=== PATIENT | male | born 1955 | race Caucasian/White ===

== ENCOUNTER 2021-02-20 18:36 | Emergency (ER) | payer MEDICAID ==
--- NOTE | 2021-02-20 19:16 | EDM.PDOC ---
ED HPI GENERAL MEDICAL PROBLEM - General Chief Complaint: Abdominal Pain Stated Complaint: PERFORATED BOWEL VIA [facility] AMB Time Seen by Provider: 02/20/21 19:09 Source of Information: Reports: Patient, EMS History Limitations: Reports: No Limitations - History of Present Illness INITIAL COMMENTS - FREE TEXT/NARRATIVE: Mp is a 65 year old male presents to ER via EMS due to abdominal pain which started on Saturday and described as severe. Patient had an appointment at [facility] today for a PET scan for a work-up for a different condition. Mp was called today by the ordering provider or radiology regarding concerning findings on PET scan for possible perforated ulcer. Mp has had decreased appetite with nausea and worsening abdominal pain across upper abdomen starting on Saturday which has progressively worsened over the last 2-3 days. Mp was told to go to the nearest ER, he called sister and a friend whom declined a ride but called the ambulance to transport him to the ER this evening. Mp's last meal was 11amlunch but had a few cookies with evening medications. Mp lives in the [facility]. Patient reporting not quite understanding why he needed to present to the ER this evening by ambulance. Patient is a very poor historian and unable to give details or offer additional information. Right Upper Abdomen Pain Score (Numeric/FACES): 2 - Related Data Allergies Allergy/AdvReac Type Severity Reaction Status Date / Time No Known Allergies Allergy Verified 02/20/21 18:49 Home Meds: Home Meds Diclofenac Potassium [Cataflam] 50 mg PO TID 02/20/21 [History] Tiotropium [Spiriva Handihaler] 1 puff IH DAILY 02/20/21 [History] Past Medical History Respiratory History: Reports: COPD Genitourinary History: Reports: BPH Musculoskeletal History: Reports: Back Pain, Chronic, Fracture Oncologic (Cancer) History: Reports: Lung Other Oncologic History: lung mass noted recently 01/2021 - Infectious Disease History Infectious Disease History: Reports: Chicken Pox, Measles, Mumps - Past Surgical History Musculoskeletal Surgical History: Reports: Hip Replacement Social & Family History - Tobacco Use Tobacco Use Status *Q: Current Every Day Tobacco User Years of Tobacco use: 50 Packs/Tins Daily: 0.1 - Caffeine Use Caffeine Use: Reports: Coffee - Recreational Drug Use Recreational Drug Use: Yes Drug Use in Last 12 Months: Yes Recreational Drug Type: Reports: Marijuana/Hashish Recreational Drug Use Frequency: Weekly ED ROS GENERAL - Review of Systems Review Of Systems: Comprehensive ROS is negative, except as noted in HPI. (limited historian.) ED EXAM, GI/ABD - Physical Exam Exam: See Below Exam Limited By: No Limitations General Appearance: Alert, WD/WN, Moderate Distress (due severe pain across upper abdomen) Eyes: Bilateral: Normal Appearance Ears: Hearing Grossly Normal Nose: Normal Inspection, Normal Mucosa Throat/Mouth: Normal Inspection, Normal Lips, Normal Voice, No Airway Compromise Neck: Normal Inspection, Supple Respiratory/Chest: No Respiratory Distress, Decreased Breath Sounds (upper lobe (known lung mass)) Cardiovascular: Normal Peripheral Pulses, Regular Rate, Rhythm (severely high blood pressure) GI/Abdominal Exam: Distended, Guarding, Tender (across upper abdomen), Abnormal Bowel Sounds (hypoactive) Extremities: Normal Inspection, Normal Range of Motion Neurological: Alert, Oriented, CN II-XII Intact, Normal Cognition, Normal Gait Psychiatric: Flat Affect Skin Exam: Warm, Dry, Intact Course - Vital Signs Last Recorded V/S: Last Vital Signs Temp 36.5 C 02/20/21 18:45 Pulse 89 02/20/21 20:30 Resp 16 02/20/21 19:59 BP 132/88 02/20/21 20:30 Pulse Ox 91 L 02/20/21 20:30 - Orders/Labs/Meds Orders: Active Orders 24 hr Category Date Time Status Lactated Ringers [Ringers, Lactated] 1,000 ml Med 02/20/21 19:29 Active IV BOLUS Medication Orders Lactated Ringer's (Ringers, Lactated) 1,000 mls @ 250 mls/hr IV BOLUS ONE Stop: 02/20/21 23:28 Last Admin: 02/20/21 19:50 Dose: 250 mls/hr Documented by: STEFFI Labs: Laboratory Tests 02/20/21 02/20/21 Range/Units 19:20 19:20 WBC 9.9 (4.5-11.0) K/uL RBC 4.77 (4.30-5.90) M/uL Hgb 13.9 (12.0-15.0) g/dL Hct 42.6 (40.0-54.0) % MCV 89 (80-98) fL MCH 29 (27-31) pg MCHC 33 (32-36) % Plt Count 223 (150-400) K/uL Neut % (Auto) 67.7 H (36-66) % Lymph % (Auto) 18.3 L (24-44) % Dawson % (Auto) 12.3 H (2-6) % Eos % (Auto) 1.4 L (2-4) % Baso % (Auto) 0.3 (0-1) % Sodium 138 L (140-148) mmol/L Potassium 4.1 (3.6-5.2) mmol/L Chloride 102 (100-108) mmol/L Carbon Dioxide 26 (21-32) mmol/L Anion Gap 14.1 H (5.0-14.0) mmol/L BUN 16 (7-18) mg/dL Creatinine 0.9 (0.8-1.3) mg/dL Est Cr Clr Drug Dosing 82.92 mL/min Estimated GFR (MDRD) > 60 (>60) Glucose 98 (74-106) mg/dL Calcium 8.7 (8.5-10.1) mg/dL Total Bilirubin 0.3 (0.2-1.0) mg/dL AST 13 L (15-37) U/L ALT 24 (12-78) U/L Alkaline Phosphatase 71 (46-116) U/L Total Protein 7.0 (6.4-8.2) g/dL Albumin 2.7 L (3.4-5.0) g/dL Globulin 4.3 H (2.3-3.5) g/dL Albumin/Globulin Ratio 0.6 L (1.2-2.2) Meds: Medications Generic Name Dose Route Start Last Admin Trade Name Freq PRN Reason Stop Dose Admin Lactated Ringer's 1,000 mls @ 250 mls/hr 02/20/21 19:29 02/20/21 19:50 Ringers, Lactated IV 02/20/21 23:28 250 mls/hr BOLUS ONE Administration Discontinued Medications Generic Name Dose Route Start Last Admin Trade Name Freq PRN Reason Stop Dose Admin Fentanyl 50 mcg 02/20/21 19:22 02/20/21 19:52 Fentanyl 100 Mcg/2 Ml Sdv IVPUSH 02/20/21 19:23 50 mcg ONETIME ONE Administration Sodium Chloride 1,000 mls @ 500 mls/hr 02/20/21 19:30 Normal Saline IV ASDIRECTED [facility] Metoclopramide HCl 5 mg 02/20/21 19:22 02/20/21 19:51 Metoclopramide 10 Mg/2 Ml Sdv IV 02/20/21 19:23 5 mg ONETIME ONE Administration Pantoprazole Sodium 40 mg 02/20/21 19:23 02/20/21 19:52 Pantoprazole 40 Mg Vial IVPUSH 02/20/21 19:24 40 mg ONETIME ONE Administration - Re-Assessments/Exams Free Text/Narrative Re-Assessment/Exam: 02/20/21 19:10 Assessment completed with patient unaware of severity of illness noted on PET scan earlier today at [facility]. 02/20/21 19:20 Called [facility] about radiology result regarding PET scan noted acute inflammatory changes involving stomach with signs of free air. History and presentation consistent with possible perforated ulcer, IV access obtained. Baseline blood tests to ensure no acute drop in hgb or electrolyte abnormality which would need to be treated before transferred. No IV antibiotics given due to possible desire for blood cultures at receiving facility. None of the tests or records obtained at [facility] will be readily available to receiving facility. Dr Prajapati declined need for additional testing or advanced imaging at this time with recommendation to transfer via EMS as soon as possible. Repeat imaging was not performed here due to [facility] already has imaging competed earlier today. 02/20/21 20:05 CBC and CMP results noted without any acute findings which warrant emergent intervention before time of transfer. Departure - Departure Time of Disposition: 20:51 Disposition: DC/Tfer to [facility] 02 Clinical Impression: Abdominal pain, Perforated ulcer of intestine - Discharge Information Referrals: PCP,None [Primary Care Provider] - Forms: ED Department Discharge, Interfacility Transfer JO ANN Sepsis Event Note (ED) - Evaluation Sepsis Screening Result: No Definite Risk - Focused Exam Vital Signs: Vital Signs Temp Pulse Resp BP Pulse Ox 02/20/21 20:30 89 132/88 91 L 02/20/21 19:59 90 16 167/98 H 94 L 02/20/21 18:45 36.5 C 92 18 189/102 H 93 L - My Orders Last 24 Hours: My Active Orders 02/20/21 19:29 Lactated Ringers [Ringers, Lactated] 1,000 ml IV BOLUS - Assessment/Plan Last 24 Hours: My Active Orders 02/20/21 19:29 Lactated Ringers [Ringers, Lactated] 1,000 ml IV BOLUS
[2021-02-20] MEDS ORDERED: Metoclopramide 10 MG/2 ML SDV IV ONE (19:22)
[2021-02-20] MEDS ORDERED: fentaNYL 100 MCG/2 ML SDV IVPUSH ONE (19:22)
[2021-02-20] MEDS ORDERED: Pantoprazole 40 MG Vial IVPUSH ONE (19:23)
[2021-02-20] MEDS ORDERED: Lactated Ringers 1,000 ML IV ONE (19:29)
[2021-02-20] MEDS ORDERED: Sodium Chloride 0.9% 1,000 ML IV SCH (19:30)
== END 2021-02-20 21:07 ==
LOC: JP.ED 18:36
DX: K63.1 Perforation of intestine (nontraumatic) (principal); J44.9 Chronic obstructive pulmonary disease, unspecified; Z72.0 Tobacco use
CPT/HCPCS: 36415; 80053; 85025; 96374; 96375; 99285; C9113; J2765; J3010; J7120

== ENCOUNTER 2021-03-01 08:06 | Emergency (ER) | payer MEDICAID ==
--- NOTE | 2021-03-01 08:46 | EDM.PDOC ---
ED HPI GENERAL MEDICAL PROBLEM - General Chief Complaint: Upper Extremity Injury/Pain Stated Complaint: MEDICAL VIA [facility] Time Seen by Provider: 03/01/21 08:30 Source of Information: Reports: Patient, EMS History Limitations: Reports: No Limitations - History of Present Illness INITIAL COMMENTS - FREE TEXT/NARRATIVE: 65-year-old male with right posterior chest wall and back pain that was very intense this morning. Prior to his scheduled oxycodone, he developed a very sharp and intense pain and became very diaphoretic which scared him. He took one of his oxycodone and called the ambulance. It hurt to breathe but he was not short of breath, EMS picked him up and did an EKG which looked benign. They gave some IV Toradol and transported him to the ER and his pain is now almost gone. No fevers or chills, no hemoptysis. Onset: Unknown/Unsure (Woke with pain this morning at around 730 or 8:00) Duration: Hour(s): (Several hours) Quality: Reports: Sharp, Stabbing Worsens with: Reports: Breathing Associated Symptoms: Reports: Diaphoresis Right Shoulder Pain Score (Numeric/FACES): 4 - Related Data Allergies Allergy/AdvReac Type Severity Reaction Status Date / Time No Known Allergies Allergy Verified 03/01/21 08:19 Home Meds: Home Meds Nicotine [Habitrol] 21 mg TD DAILY 03/01/21 [History] Pantoprazole [ProTONIX] 40 mg PO DAILY 03/01/21 [History] Tiotropium [Spiriva Handihaler] 18 mcg IH DAILY 03/01/21 [History] oxyCODONE 5 mg PO Q4HR PRN 03/01/21 [History] Past Medical History HEENT History: Reports: None Cardiovascular History: Reports: None Respiratory History: Reports: COPD Other Respiratory History: lung lesion Gastrointestinal History: Reports: GERD, PUD Genitourinary History: Reports: BPH Musculoskeletal History: Reports: Back Pain, Chronic, Fracture Psychiatric History: Reports: None Endocrine/Metabolic History: Reports: None Hematologic History: Reports: None Immunologic History: Reports: None Oncologic (Cancer) History: Reports: Lung Other Oncologic History: lung mass noted recently 01/2021 - Infectious Disease History Infectious Disease History: Reports: Chicken Pox, Measles, Mumps - Past Surgical History HEENT Surgical History: Reports: None Respiratory Surgical History: Reports: Lung Biopsies GI Surgical History: Reports: Other (See Below) Other GI Surgeries/Procedures: Abdominal exploration repair of perforated gastric ulcer Musculoskeletal Surgical History: Reports: Hip Replacement Social & Family History - Tobacco Use Tobacco Use Status *Q: Former Tobacco User Used Tobacco, but Quit: Yes Month/Year Tobacco Last Used: 02/20/2021 - Caffeine Use Caffeine Use: Reports: Coffee Review of Systems - Review of Systems Review Of Systems: See Below Constitutional: Denies: Fever Eyes: Reports: No Symptoms Ears: Reports: No Symptoms Mouth/Throat: Reports: No Symptoms Respiratory: Reports: Pleuritic Chest Pain. Denies: Shortness of Breath, Hemoptysis Cardiovascular: Denies: Chest Pain GI/Abdominal: Denies: Abdominal Pain, Nausea, Vomiting Musculoskeletal: Reports: Shoulder Pain Skin: Reports: Diaphoresis Neurological: Reports: No Symptoms Psychiatric: Reports: No Symptoms ED EXAM, GENERAL - Physical Exam Exam: See Below Exam Limited By: No Limitations General Appearance: Alert, No Apparent Distress Eye Exam: Bilateral Eye: Normal Inspection Head: Atraumatic Neck: Non-Tender Respiratory/Chest: Wheezing (Minimal expiratory wheezing is heard bilaterally, there is slight decreased breath sounds on the right upper posterior lung) Cardiovascular: Regular Rate, Rhythm GI/Abdominal: Soft, Non-Tender Extremities: Other (No significant reproduction of the pain with palpation on the right posterior shoulder, good range of motion without discomfort). No: Pedal Edema Neurological: Alert, Oriented Psychiatric: Normal Affect, Normal Mood Skin Exam: Warm, Dry Course - Vital Signs Last Recorded V/S: Last Vital Signs Temp 97.1 F 03/01/21 08:19 Pulse 78 03/01/21 08:19 Resp 16 03/01/21 08:19 BP 147/87 H 03/01/21 08:19 Pulse Ox 92 L 03/01/21 08:19 - Orders/Labs/Meds Labs: Laboratory Tests 03/01/21 Range/Units 08:41 Troponin I < 0.017 (0.000-0.056) ng/mL - Re-Assessments/Exams Free Text/Narrative Re-Assessment/Exam: 03/01/21 09:49 Troponin was obtained which was 0, 2 view chest x-ray shows the large right upper lobe mass but no pneumo or effusion. Pain was markedly improved on discharge, almost gone. Patient will likely have some intermittent sharp pains considering the mass has expanded into his right posterior rib in this area. If he develops chest pain or shortness of breath, he can return for reevaluation. Departure - Departure Time of Disposition: 09:47 Disposition: Home, Self-Care 01 Clinical Impression: Acute pain of right shoulder, Malignant neoplasm of right upper lobe of lung - Discharge Information Instructions: Musculoskeletal Pain Referrals: PCP,None [Primary Care Provider] - Forms: ED Department Discharge Care Plan Goals: Continue your current medications, increase activity as tolerated and recheck as scheduled. Return if you develop chest pain which is persistent, shortness of breath or other concerns such as fever or chills. Sepsis Event Note (ED) - Evaluation Sepsis Screening Result: No Definite Risk - Focused Exam Vital Signs: Vital Signs Temp Pulse Resp BP Pulse Ox 03/01/21 08:19 97.1 F 78 16 147/87 H 92 L 03/01/21 08:16 97.1 F 78 16 147/87 H 92 L
--- NOTE | 2021-03-01 09:11 | CR ---
CHEST: 2 view CLINICAL HISTORY:Dyspnea COMPARISON:PETCT 02/20/2021 FINDINGS: Patient has a known large mass in the right apex laterally. No new mass or infiltrate is identified. Heart and pulmonary vascularity appear normal. Impression: Known large right apical neoplastic mass similar to 02/20/2021
== END 2021-03-01 09:47 | disposition home or self-care (01) ==
LOC: JP.ED 08:06
DX: C34.11 Malignant neoplasm of upper lobe, right bronchus or lung (principal); M25.511 Pain in right shoulder; K21.9 Gastro-esophageal reflux disease without esophagitis; J44.9 Chronic obstructive pulmonary disease, unspecified; Z79.899 Other long term (current) drug therapy; Z87.891 Personal history of nicotine dependence
CPT/HCPCS: 36415; 71046; 71046-26; 84484; 99285-25

== ENCOUNTER 2021-06-14 09:44 | Emergency (ER) | payer MEDICAID ==
[2021-06-14] MEDS ORDERED: Sodium Chloride 0.9% 10 ML Syringe FLUSH PRN (10:28)
[2021-06-14] MEDS ORDERED: Sodium Chloride 0.9% 1,000 ML IV SCH (10:30)
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
[2021-06-14] MEDS ORDERED: Gadoteridol 279.3 MG/ML 20 ML SDV IV SCH (11:30)
--- NOTE | 2021-06-14 11:35 | CT ---
Head wo Cont CLINICAL HISTORY: Left arm numbness, history of lung carcinoma COMPARISON: 03/09/2021 TECHNIQUE: Transverse scans were obtained from the base of the skull through the vertex without IV contrast on a multislice, multidetector CT scanner. Auto dosage reduction and iterative reconstruction techniques employed. FINDINGS: In the high right parietal lobe there is a 1.4 x 1.3 x 1.6 cm slightly hyperdense nodule. There is a moderate amount of surrounding edema. There is some mild the mass effect. No evidence of hemorrhage. The basal cisterns and sulci over the convexities are normal. The ventricles are normal for age. IMPRESSION: Hyperdense lesion in the high right parietal lobe with surrounding edema is highly suspect for neoplasm. Patient has a history of lung carcinoma and metastatic disease should be considered MR brain pre and postcontrast recommended
--- NOTE | 2021-06-14 13:42 | MR ---
Brain w wo Cont CLINICAL HISTORY: Mass COMPARISON: Current CT TECHNIQUE: Multiple pulse sequences were obtained through the brain in the axial, coronal, and sagittal planes both pre-and post IV contrast infusion gadolinium-based contrast. All images were obtained on a 1.5 Angelita unit. FINDINGS: There is a focus of restricted diffusion in the high right parietal lobe posteriorly. There is a rounded enhancing lesion measuring 1.6 x 1.3 x 1.4 cm. There is surrounding vasogenic edema. There is no significant mass effect. No other lesions are seen IMPRESSION: High right parietal lobe lesion is most suggestive of metastasis considering the history of lung carcinoma
== END 2021-06-14 14:25 | disposition home or self-care (01) ==
LOC: JP.ED 09:44
DX: C71.9 Malignant neoplasm of brain, unspecified (principal); J44.9 Chronic obstructive pulmonary disease, unspecified; I10 Essential (primary) hypertension; N40.0 Benign prostatic hyperplasia without lower urinary tract symptoms; K21.9 Gastro-esophageal reflux disease without esophagitis; Z79.899 Other long term (current) drug therapy; Z87.891 Personal history of nicotine dependence
CPT/HCPCS: 36415; 70450; 70553; 84484; 85610; 93005; 99284; A9579; J7030

== ENCOUNTER 2022-06-26 12:39 | Inpatient (IN) | payer MEDICARE ==
[2022-06-26] MEDS ORDERED: Sodium Chloride 0.9% 10 ML Syringe FLUSH PRN (12:46)
[2022-06-26] MEDS ORDERED: Albuterol/Ipratropium 3.0-0.5 MG/3 ML Neb Soln NEB ONE (12:49)
[2022-06-26] MEDS ORDERED: Lactated Ringers 500 ML IV ONE ×3 (12:55→15:50)
[2022-06-26 13:27] LABS: ESTIMATED GFR 44 mL/min (>60)
[2022-06-26] MEDS ORDERED: Piperacillin/Tazobactam 4.5 GM in Sodium Chloride 0.9% 50 ML IV ONE (13:37)
[2022-06-26] MEDS ORDERED: Vancomycin 2 GM in Sodium Chloride 0.9% 500 ML IV ONE ×2 (13:38→14:30)
[2022-06-26] MEDS ORDERED: Lactated Ringers 1,000 ML IV SCH (13:45)
[2022-06-26] MEDS ORDERED: Piperacillin/Tazobactam/Dext 4.5 GM in Premix Bag 1 BAG IV ONE (14:00)
[2022-06-26 14:09] LABS: CORONAVIRUS COVID-19 NAA NEGATIVE (NEGATIVE)
[2022-06-26] MEDS ORDERED: Melatonin 3 MG Tab PO PRN (16:46)
[2022-06-26] MEDS ORDERED: Ondansetron 4 MG Tab.DIS PO PRN (16:46)
[2022-06-26] MEDS ORDERED: Acetaminophen 325 MG Tab PO PRN (16:46)
[2022-06-26] MEDS ORDERED: Magnesium Hydroxide 400 MG/5 ML Susp 30 ML Cup PO PRN (16:46)
[2022-06-26] MEDS ORDERED: Ondansetron 4 MG/2 ML SDV IV PRN (16:46)
[2022-06-26] MEDS ORDERED: guaiFENesin/Dextromethorphan 100-10 MG/5 ML Soln 10 ML Cup PO PRN (16:46)
[2022-06-26] MEDS ORDERED: Benzonatate 100 MG Cap PO PRN (16:46)
[2022-06-26] MEDS: Albuterol/Ipratropium 3.0-0.5 MG/3 ML Neb Soln NEB SCH ×2 (17:16→21:59)
[2022-06-26] MEDS: Doxycycline 100 MG in Sodium Chloride 0.9% 100 ML IV SCH (17:52)
[2022-06-26] MEDS: Enoxaparin 40 MG/0.4 ML Syringe SUBCUT SCH (17:56)
[2022-06-26] MEDS ORDERED: Enoxaparin 30 MG/0.3 ML Syringe SUBCUT SCH (18:00)
[2022-06-26] MEDS: Lactated Ringers 1,000 ML IV SCH (19:27)
[2022-06-26] MEDS: Lactobacillus Rhamnosus GG (Probiotic) Cap PO SCH (21:59)
[2022-06-26] MEDS: Linezolid 600 MG in Premix Bag 1 BAG IV SCH (22:00)
[2022-06-27] MEDS: Lactated Ringers 1,000 ML IV SCH (04:49)
[2022-06-27] MEDS: Doxycycline 100 MG in Sodium Chloride 0.9% 100 ML IV SCH ×2 (05:27→17:56)
[2022-06-27] MEDS: Albuterol/Ipratropium 3.0-0.5 MG/3 ML Neb Soln NEB SCH ×4 (07:11→20:32)
[2022-06-27] MEDS: Pantoprazole 40 MG Tab.CR PO SCH (08:30)
[2022-06-27] MEDS: Lactobacillus Rhamnosus GG (Probiotic) Cap PO SCH ×2 (08:35→20:02)
[2022-06-27] MEDS: Linezolid 600 MG in Premix Bag 1 BAG IV SCH ×2 (10:05→21:17)
[2022-06-27] MEDS ORDERED: Lactated Ringers 1,000 ML IV SCH (10:30)
[2022-06-27] MEDS: Enoxaparin 40 MG/0.4 ML Syringe SUBCUT SCH (17:56)
[2022-06-27] MEDS: Albuterol 0.083% 2.5 MG/3 ML Neb Soln NEB PRN (21:12)
[2022-06-28] MEDS ORDERED: Sodium Chloride 0.9% 500 ML IV ONE ×2 (00:33→02:06)
[2022-06-28] MEDS: Albuterol 0.083% 2.5 MG/3 ML Neb Soln NEB PRN (02:01)
[2022-06-28] MEDS ORDERED: methylPREDNISolone Sodium Succinate 125 MG/2 ML SDV IVPUSH ONE (02:28)
[2022-06-28] MEDS: Lactated Ringers 1,000 ML IV SCH ×3 (03:15→21:52)
[2022-06-28] MEDS ORDERED: Potassium Chloride 10 MEQ in Premix Bag 2 BAG IV ONE (03:37)
[2022-06-28] MEDS: Potassium Chloride 10 MEQ in Premix Bag 1 BAG IV SCH ×2 (04:01→05:04)
[2022-06-28] MEDS ORDERED: Sodium Chloride 0.9% 1,000 ML IV SCH (04:30)
[2022-06-28] MEDS: Doxycycline 100 MG in Sodium Chloride 0.9% 100 ML IV SCH ×2 (06:15→18:00)
[2022-06-28] MEDS: methylPREDNISolone Sodium Succinate 40 MG/1 ML SDV IVPUSH SCH ×3 (06:15→18:00)
[2022-06-28] MEDS: Albuterol/Ipratropium 3.0-0.5 MG/3 ML Neb Soln NEB SCH ×4 (07:03→20:37)
[2022-06-28] MEDS: Pantoprazole 40 MG Tab.CR PO SCH (07:53)
[2022-06-28] MEDS ORDERED: Potassium Chloride 20 MEQ Tab.ER PO ONE (09:00)
[2022-06-28] MEDS: Linezolid 600 MG in Premix Bag 1 BAG IV SCH (09:00)
[2022-06-28] MEDS: Lactobacillus Rhamnosus GG (Probiotic) Cap PO SCH ×2 (09:07→20:32)
[2022-06-28] MEDS: Magnesium Sulfate/Water 2 GM in Premix Bag 1 BAG IV SCH ×2 (10:03→15:37)
[2022-06-28] MEDS: Enoxaparin 40 MG/0.4 ML Syringe SUBCUT SCH (18:00)
[2022-06-29] MEDS: methylPREDNISolone Sodium Succinate 40 MG/1 ML SDV IVPUSH SCH ×4 (00:13→17:46)
[2022-06-29 04:58] LABS: ESTIMATED GFR 84 mL/min (>60)
[2022-06-29] MEDS: Lactated Ringers 1,000 ML IV SCH (05:46)
[2022-06-29] MEDS: Doxycycline 100 MG in Sodium Chloride 0.9% 100 ML IV SCH (05:57)
[2022-06-29] MEDS: Albuterol/Ipratropium 3.0-0.5 MG/3 ML Neb Soln NEB SCH ×4 (07:01→20:37)
[2022-06-29] MEDS: Pantoprazole 40 MG Tab.CR PO SCH (07:48)
[2022-06-29] MEDS: Lactobacillus Rhamnosus GG (Probiotic) Cap PO SCH ×2 (09:07→20:41)
[2022-06-29] MEDS ORDERED: Lactated Ringers 1,000 ML IV SCH (09:37)
[2022-06-29] MEDS: Enoxaparin 40 MG/0.4 ML Syringe SUBCUT SCH (17:46)
[2022-06-29] MEDS: Doxycycline 100 MG Cap PO SCH (20:41)
[2022-06-30] MEDS: methylPREDNISolone Sodium Succinate 40 MG/1 ML SDV IVPUSH SCH (00:25)
[2022-06-30] MEDS: Albuterol/Ipratropium 3.0-0.5 MG/3 ML Neb Soln NEB SCH ×4 (07:30→20:58)
[2022-06-30] MEDS: Pantoprazole 40 MG Tab.CR PO SCH (07:48)
[2022-06-30] MEDS: predniSONE 20 MG Tab PO SCH (09:36)
[2022-06-30] MEDS: Lactobacillus Rhamnosus GG (Probiotic) Cap PO SCH ×2 (09:36→20:57)
[2022-06-30] MEDS: Doxycycline 100 MG Cap PO SCH ×2 (09:36→20:57)
[2022-06-30] MEDS ORDERED: Sodium Chloride 0.9% 75 ML IV ONE (10:22)
[2022-06-30] MEDS ORDERED: Sodium Chloride 0.9% 10 ML Syringe FLUSH PRN (10:22)
[2022-06-30] MEDS ORDERED: Iopamidol 755 Mg/ML 100 ML Bottle IV SCH (10:30)
[2022-06-30] MEDS ORDERED: Furosemide 40 MG/4 ML VIAL IVPUSH ONE (13:45)
[2022-06-30] MEDS: Enoxaparin 40 MG/0.4 ML Syringe SUBCUT SCH (17:34)
[2022-07-01] MEDS: Albuterol/Ipratropium 3.0-0.5 MG/3 ML Neb Soln NEB SCH ×4 (07:35→20:24)
[2022-07-01] MEDS: Pantoprazole 40 MG Tab.CR PO SCH (07:49)
[2022-07-01] MEDS: predniSONE 20 MG Tab PO SCH (07:56)
[2022-07-01] MEDS: Doxycycline 100 MG Cap PO SCH ×3 (07:57→20:23)
[2022-07-01] MEDS: Lactobacillus Rhamnosus GG (Probiotic) Cap PO SCH ×3 (07:57→20:23)
[2022-07-01] MEDS ORDERED: Furosemide 40 MG/4 ML VIAL IVPUSH ONE (09:55)
[2022-07-01] MEDS: Enoxaparin 40 MG/0.4 ML Syringe SUBCUT SCH (17:20)
[2022-07-02] MEDS: Pantoprazole 40 MG Tab.CR PO SCH (07:28)
[2022-07-02] MEDS: Albuterol/Ipratropium 3.0-0.5 MG/3 ML Neb Soln NEB SCH ×4 (07:28→20:39)
[2022-07-02] MEDS: predniSONE 20 MG Tab PO SCH (07:28)
[2022-07-02] MEDS: Lactobacillus Rhamnosus GG (Probiotic) Cap PO SCH ×2 (08:24→20:39)
[2022-07-02] MEDS: Doxycycline 100 MG Cap PO SCH ×2 (08:24→20:39)
[2022-07-02] MEDS ORDERED: Furosemide 40 MG/4 ML VIAL IVPUSH ONE (15:46)
[2022-07-02] MEDS: Enoxaparin 40 MG/0.4 ML Syringe SUBCUT SCH (18:07)
[2022-07-03] MEDS: Albuterol/Ipratropium 3.0-0.5 MG/3 ML Neb Soln NEB SCH ×4 (07:01→21:05)
[2022-07-03] MEDS: Pantoprazole 40 MG Tab.CR PO SCH (07:13)
[2022-07-03] MEDS: predniSONE 20 MG Tab PO SCH (07:13)
[2022-07-03] MEDS: Lactobacillus Rhamnosus GG (Probiotic) Cap PO SCH ×2 (08:32→21:12)
[2022-07-03] MEDS: Doxycycline 100 MG Cap PO SCH ×2 (08:32→21:12)
[2022-07-03] MEDS ORDERED: Potassium Chloride 20 MEQ Tab.ER PO ONE ×2 (09:30→17:00)
[2022-07-03] MEDS ORDERED: Furosemide 40 MG/4 ML VIAL IVPUSH ONE (13:36)
[2022-07-03] MEDS: Enoxaparin 40 MG/0.4 ML Syringe SUBCUT SCH (17:42)
[2022-07-04] MEDS: Albuterol/Ipratropium 3.0-0.5 MG/3 ML Neb Soln NEB SCH ×4 (07:01→20:11)
[2022-07-04] MEDS: Pantoprazole 40 MG Tab.CR PO SCH (07:19)
[2022-07-04] MEDS: Doxycycline 100 MG Cap PO SCH ×2 (08:14→20:08)
[2022-07-04] MEDS: Furosemide 20 MG Tab PO SCH (08:14)
[2022-07-04] MEDS: predniSONE 20 MG Tab PO SCH (08:14)
[2022-07-04] MEDS: Lactobacillus Rhamnosus GG (Probiotic) Cap PO SCH ×2 (08:14→20:08)
[2022-07-04] MEDS: Enoxaparin 40 MG/0.4 ML Syringe SUBCUT SCH (17:02)
[2022-07-05] MEDS: Albuterol/Ipratropium 3.0-0.5 MG/3 ML Neb Soln NEB SCH ×4 (07:28→20:32)
[2022-07-05] MEDS: Pantoprazole 40 MG Tab.CR PO SCH (07:53)
[2022-07-05] MEDS: predniSONE 20 MG Tab PO SCH (07:54)
[2022-07-05] MEDS: Lactobacillus Rhamnosus GG (Probiotic) Cap PO SCH ×2 (09:07→20:31)
[2022-07-05] MEDS: Furosemide 20 MG Tab PO SCH (09:07)
[2022-07-05] MEDS: Enoxaparin 40 MG/0.4 ML Syringe SUBCUT SCH (17:45)
[2022-07-06] MEDS: Albuterol/Ipratropium 3.0-0.5 MG/3 ML Neb Soln NEB SCH ×4 (07:09→20:16)
[2022-07-06] MEDS: Pantoprazole 40 MG Tab.CR PO SCH (07:18)
[2022-07-06] MEDS: Furosemide 20 MG Tab PO SCH (08:56)
[2022-07-06] MEDS: Lactobacillus Rhamnosus GG (Probiotic) Cap PO SCH (08:56)
[2022-07-06] MEDS: Enoxaparin 40 MG/0.4 ML Syringe SUBCUT SCH (17:24)
[2022-07-07] MEDS: Albuterol/Ipratropium 3.0-0.5 MG/3 ML Neb Soln NEB SCH ×4 (06:57→21:50)
[2022-07-07] MEDS: Furosemide 20 MG Tab PO SCH (08:03)
[2022-07-07] MEDS: Pantoprazole 40 MG Tab.CR PO SCH (08:03)
[2022-07-07] MEDS: Enoxaparin 40 MG/0.4 ML Syringe SUBCUT SCH (18:48)
[2022-07-08] MEDS: Albuterol/Ipratropium 3.0-0.5 MG/3 ML Neb Soln NEB SCH ×3 (07:04→14:34)
[2022-07-08] MEDS: Pantoprazole 40 MG Tab.CR PO SCH (07:56)
[2022-07-08] MEDS: oxyCODONE 5 MG Tab PO PRN ×2 (07:59→18:51)
[2022-07-08] MEDS: Furosemide 20 MG Tab PO SCH (08:00)
[2022-07-08] MEDS: Enoxaparin 40 MG/0.4 ML Syringe SUBCUT SCH (18:50)
[2022-07-09] MEDS: Albuterol/Ipratropium 3.0-0.5 MG/3 ML Neb Soln NEB SCH ×5 (00:30→20:04)
[2022-07-09] MEDS: oxyCODONE 5 MG Tab PO PRN (05:46)
[2022-07-09] MEDS: Pantoprazole 40 MG Tab.CR PO SCH (07:31)
[2022-07-09] MEDS: Furosemide 20 MG Tab PO SCH (11:17)
[2022-07-09] MEDS ORDERED: LORazepam 0.5 MG Tab PO PRN (12:37)
[2022-07-09] MEDS: Morphine 10 MG/0.5 ML Oral Syringe PO SCH ×2 (16:25→22:14)
[2022-07-09] MEDS: Enoxaparin 40 MG/0.4 ML Syringe SUBCUT SCH (17:25)
[2022-07-10] MEDS: Morphine 10 MG/0.5 ML Oral Syringe PO SCH ×4 (06:10→21:50)
[2022-07-10] MEDS: Albuterol/Ipratropium 3.0-0.5 MG/3 ML Neb Soln NEB SCH ×4 (07:04→21:50)
[2022-07-10] MEDS: Pantoprazole 40 MG Tab.CR PO SCH (08:15)
[2022-07-10] MEDS: Furosemide 20 MG Tab PO SCH (08:15)
[2022-07-10] MEDS: oxyCODONE 5 MG Tab PO PRN ×2 (12:53→19:04)
[2022-07-11] MEDS: Morphine 10 MG/0.5 ML Oral Syringe PO SCH ×4 (05:32→21:24)
[2022-07-11] MEDS: Albuterol/Ipratropium 3.0-0.5 MG/3 ML Neb Soln NEB SCH ×4 (07:30→21:24)
[2022-07-11] MEDS: Pantoprazole 40 MG Tab.CR PO SCH (08:17)
[2022-07-11] MEDS: Furosemide 20 MG Tab PO SCH (08:17)
[2022-07-12] MEDS: Morphine 10 MG/0.5 ML Oral Syringe PO SCH ×2 (05:45→10:28)
[2022-07-12] MEDS: Albuterol/Ipratropium 3.0-0.5 MG/3 ML Neb Soln NEB SCH ×2 (07:08→10:41)
[2022-07-12] MEDS: Pantoprazole 40 MG Tab.CR PO SCH (07:14)
[2022-07-12] MEDS: Furosemide 20 MG Tab PO SCH (08:10)
== END 2022-07-12 12:05 | disposition hospice, inpatient (51) | DRG 871 ==
LOC: JP.ED 12:39 → UNDOADMIN 15:08 → JP.ICU 15:08
PROVIDERS: ADMIT Internal Medicine; ATTEND Internal Medicine
DX: A41.9 Sepsis, unspecified organism (principal); J18.9 Pneumonia, unspecified organism; D64.9 Anemia, unspecified; J96.01 Acute respiratory failure with hypoxia; N17.9 Acute kidney failure, unspecified; C34.11 Malignant neoplasm of upper lobe, right bronchus or lung; C79.31 Secondary malignant neoplasm of brain; J44.9 Chronic obstructive pulmonary disease, unspecified; C78.00 Secondary malignant neoplasm of unspecified lung; J44.0 Chronic obstructive pulmonary disease with (acute) lower respiratory infection; Z20.822 Contact with and (suspected) exposure to COVID-19; Z51.5 Encounter for palliative care; E87.3 Alkalosis; R65.20 Severe sepsis without septic shock; K21.9 Gastro-esophageal reflux disease without esophagitis; N40.0 Benign prostatic hyperplasia without lower urinary tract symptoms; M54.9 Dorsalgia, unspecified; G89.29 Other chronic pain; I10 Essential (primary) hypertension; I95.9 Hypotension, unspecified; Z96.649 Presence of unspecified artificial hip joint; Z79.899 Other long term (current) drug therapy
CPT/HCPCS: 0241U; 36415; 36600; 51702; 71045; 71250; 71275; 80048; 80053; 82803; 83605; 83735; 84145; 85018; 85025; 85027; 86140; 87040; 87205; 94640; 94667; 96361; 96365; 96367; 97110; 97163; 97165; 97530; 99285; A9270-GY; J0713; J1642; J1650; J1940; J2020; J2543; J2920; J2930; J3370; J3475; J3480; J3490; J7030; J7040; J7120; J7512; J7620; Q0162; Q9967; U0002